=== PATIENT | male | born 2000 | race Caucasian/White ===

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

== ENCOUNTER → 2021-03-27 09:22 | Outpatient (CLI) | payer OTHER, SELFPAY | LOC: UTC.OUT 09:23 → COVID.OUT 03-28 05:38 | PROVIDERS: Visit Provider Nurse Practitioner | DX: Z20.822 Contact with and (suspected) exposure to COVID-19 (principal) | CPT/HCPCS: C9803; U0003; U0005 ==

== ENCOUNTER → 2021-04-02 13:55 | Outpatient (CLI) | payer OTHER, SELFPAY | PROVIDERS: Visit Provider Nurse Practitioner Family | DX: Z20.822 Contact with and (suspected) exposure to COVID-19 (principal) | CPT/HCPCS: C9803; U0003; U0005 ==

== ENCOUNTER → 2021-06-08 08:39 | Outpatient (CLI) | payer OTHER, SELFPAY | PROVIDERS: PCP Emergency Medicine; Visit Provider Nurse Practitioner | DX: U07.1 COVID-19 (principal) | CPT/HCPCS: C9803; U0003; U0005 ==

== ENCOUNTER 2021-06-12 09:02 | Emergency (ER) | payer OTHER, SELFPAY ==
[2021-06-12] VITALS (14 sets, daily range): BP systolic 122–159; BP diastolic 73–91; PULSE 74–112; RESP 15–20; TEMP 36.6–38.8; O2SAT 95–98; BMI 43.5
--- NOTE | 2021-06-12 09:11 | PC.NURSE ---
pt in room and hooked up to vital signs at this time. Call light within reach.
--- NOTE | 2021-06-12 09:23 | HMH.EDGENADL ---
ED Disposition Clinical Impression: Abscess of skin or subcutaneous tissue Qualifiers: Site of cutaneous abscess: trunk Site of cutaneous abscess of trunk: chest wall Qualified Code(s): L02.213 - Cutaneous abscess of chest wall Cellulitis Qualifiers: Site of cellulitis: trunk Site of cellulitis of trunk: chest wall Qualified Code(s): L03.313 - Cellulitis of chest wall Disposition: Home, Self-Care Condition on Discharge: Good Additional Instructions: Please continue to monitor your condition closely. If your condition worsens or any other concerns arise, please return promptly to the emergency department. If you notice that your symptoms are not improving after 24 to 48 hours on antibiotics, please return for reassessment. See your primary care physician in 2 to 3 days for wound check. Additionally, take out the packing in 24 hours. Referrals: Jonathan Hutson MD [Primary Care Provider] - - Critical Care Critical Care Time: No Attestation: On 06/12/21, the high probability of a clinically significant, sudden or life threatening deterioration of the following system(s) required my full and direct attention, intervention and personal management. The time I documented below is in addition to time spent performing reported procedures but includes the following listed in this critical care notation. Medical Decision Making - Medical Records Medical records reviewed: Yes: I reviewed the patient's medical records. - Angel Inquiry Pt receiving controlled substance: No Vital Signs: 06/12/21 09:03 06/12/21 09:12 06/12/21 09:13 Temperature 98 F Temperature Source Oral Pulse Rate 110 H 101 H Pulse Rate [Radial] 112 H Respiratory Rate 20 15 Blood Pressure 146/87 H 146/87 H Blood Pressure [Right Arm] 159/91 H Blood Pressure Mean 100 Blood Pressure Mean [Right Arm] 113 Blood Pressure Position [Right Arm] Sitting 02 Sat by Pulse Oximetry 98 97 96 Oxygen Delivery Method Room Air Room Air 06/12/21 10:00 06/12/21 10:30 06/12/21 11:00 Temperature 102 F H Temperature Source Oral Pulse Rate 84 90 79 Pulse Rate [Radial] Respiratory Rate 16 Blood Pressure 139/86 138/81 141/80 H Blood Pressure [Right Arm] Blood Pressure Mean 92 Blood Pressure Mean [Right Arm] Blood Pressure Position [Right Arm] 02 Sat by Pulse Oximetry 96 96 96 Oxygen Delivery Method 06/12/21 11:30 06/12/21 12:00 06/12/21 12:30 Temperature Temperature Source Pulse Rate 94 H 79 78 Pulse Rate [Radial] Respiratory Rate 16 Blood Pressure 139/80 142/82 H 131/80 Blood Pressure [Right Arm] Blood Pressure Mean 93 Blood Pressure Mean [Right Arm] Blood Pressure Position [Right Arm] 02 Sat by Pulse Oximetry 96 96 97 Oxygen Delivery Method 06/12/21 13:01 06/12/21 13:31 06/12/21 14:00 Temperature Temperature Source Pulse Rate 90 79 74 Pulse Rate [Radial] Respiratory Rate Blood Pressure 140/83 122/73 130/78 Blood Pressure [Right Arm] Blood Pressure Mean Blood Pressure Mean [Right Arm] Blood Pressure Position [Right Arm] 02 Sat by Pulse Oximetry 97 97 95 Oxygen Delivery Method - Lab Data Lab results reviewed: Yes: I reviewed the patient's lab results. Lab Results 06/12/21 10:45: WBC 17.6 H, RBC 5.08, Hgb 15.3, Hct 45.4, MCV 89.4, MCH 30.2, MCHC 33.8, RDW 12.8, Plt Count 352, MPV 7.9, Neut % (Auto) 84.7 H, Lymph % (Auto) 7.8 L, [place] % (Auto) 7.0, Eos % (Auto) 0.2, Baso % (Auto) 0.3, Neut # (Auto) 14.9 H, Lymph # (Auto) 1.4, [place] # (Auto) 1.2 H, Eos # (Auto) 0.0, Baso # (Auto) 0.1 06/12/21 10:45: Sodium 135 L, Potassium 3.8, Chloride 99, Carbon Dioxide 29, Anion Gap 10.8, BUN 9, Creatinine 1.00, Estimated Creat Clear 145, Estimated GFR 95, Est GFR ( Amer) 115, Glucose 120 H, Calcium 9.4, Total Bilirubin 0.9, AST 27, ALT 36, Alkaline Phosphatase 63, C-Reactive Protein 77.0 H, Total Protein 8.1, Albumin 4.3, Globulin 3.8 H, Albumin/Globulin Ratio 1.1
--- NOTE | 2021-06-12 10:00 | PC.NURSE ---
pt resting updated on plan of care
--- NOTE | 2021-06-12 11:00 | PC.NURSE ---
pt resting awaiting labs
[2021-06-12 11:20] LABS: Chloride 99 mmol/L (98-107)
[2021-06-12 11:21] LABS: Potassium 3.8 mmoL/L (3.5-5.1); Sodium 135 mmol/L (136-145)
[2021-06-12 11:23] LABS: Alanine Aminotransferase 36 U/L (12-78); Alkaline Phosphatase 63 U/L (38-126); Anion Gap 10.8 mEq/L (5-15); Aspartate Amino Transferase 27 U/L (17-59); Bilirubin,Total 0.9 mg/dl (0.2-1.3); Blood Urea Nitrogen 9 mg/dl (9-20); Carbon Dioxide 29 mmol/L (22.0-30.0); Creatinine Clearance Estimated 145 mL/min (50-200); Estimated Glomerular Filt Rate 95 ml/min (>60); GFR (African American) 115 ML/MIN (>60)
[2021-06-12 11:24] LABS: Albumin Level 4.3 g/dl (3.5-5.0); Albumin/Globulin Ratio 1.1 (1.1-1.8); Calcium 9.4 mg/dl (8.4-10.2); Globulin 3.8 g/dL (1.3-3.2); Glucose 120 mg/dl (74-100); Total Protein,Serum 8.1 g/dl (6.3-8.2)
[2021-06-12 14:18] LABS: Basophils # 0.1 K/mm3 (0-0.2); Basophils % 0.3 % (0.1-2.0); Eosinophils % 0.2 % (0.1-12.0); Hematocrit 45.4 % (42.0-52.0); Hemoglobin 15.3 g/dL (14.1-18.0); Lymphocytes # 1.4 K/mm3 (0.7-4.5); Lymphocytes % 7.8 % (10-50); Mean Corpuscular HGB Conc 33.8 g/dL (31.8-35.4); Mean Corpuscular Hemoglobin 30.2 pg (27.0-31.2); Mean Corpuscular Volume 89.4 fl (80-94); Mean Platelet Volume 7.9 fl (7.4-10.4); Monocytes # 1.2 K/mm3 (0.1-1.0); Neutrophils # 14.9 K/mm3 (1.8-7.8); Neutrophils % 84.7 % (37.0-80.0); Platelet Count 352 K/mm3 (142-424); Red Blood Count 5.08 M/mm3 (4.60-6.20); Red Cell Distribution Width 12.8 % (11.5-17.5); White Blood Count 17.6 K/mm3 (4.5-13.0)
[2021-06-12 14:21] LABS: MANUAL DIFFERENTIAL MANUAL DIFFERENTIAL (MANUAL DIFF)
[2021-06-12 14:48] LABS: Lymphocytes % 12 % (10-50); Monocytes % 10 % (2-9); Neutrophils % 77 % (42-76); Platelet Estimate Normal; RBC Morphology Normal; Total Cells Counted 100
--- NOTE | 2021-06-12 15:00 | PC.NURSE ---
pt unable to take pills changed to liquid
== END 2021-06-12 15:47 | disposition home or self-care (01) ==
PROVIDERS: Emergency Provider Emergency Medicine; PCP Emergency Medicine
DX: L02.213 Cutaneous abscess of chest wall (principal)
CPT/HCPCS: 10060; 80053; 85007; 85025; 86140; 99283